=== PATIENT | male | born 1940 | race Caucasian/White ===

== ENCOUNTER → 2016-08-29 | Outpatient (REF) ==
[~2016-08-29] MED LIST: ASPIR-LOW81 MG PO; HERBS; LEVAQUIN 5500 MG/TA1 PO; NORCO 325 MG-7.1 TAB PO
[2016-08-29 15:44] LABS: PSA-TOTAL 2.33 ng/mL (0-4)
[2016-08-29 16:57] LABS: THYROID STIMULATING HORMONE 3.18 uIU/mL (0.465-4.680)
== END ==
LOC: ZLAB.WCH 14:57
PROVIDERS: Internal Medicine
DX: Z01.89 Encounter for other specified special examinations (principal)
CPT/HCPCS: G0103

== ENCOUNTER → 2017-04-07 | Outpatient (REF) | LOC: COL.CARD 14:51 | DX: Z02.89 Encounter for other administrative examinations (principal) ==

== ENCOUNTER → 2017-04-25 | Outpatient (REF) | LOC: ZLAB.WCH 18:13 | DX: Z01.89 Encounter for other specified special examinations (principal) ==

== ENCOUNTER → 2017-11-13 | Outpatient (REF) | LOC: ZLAB.WCH 15:57 | DX: Z01.89 Encounter for other specified special examinations (principal) ==

== ENCOUNTER → 2017-11-28 | Outpatient (REF) | LOC: COL.CARD 10:09 | DX: Z01.89 Encounter for other specified special examinations (principal) ==

== ENCOUNTER → 2018-01-11 | Outpatient (REF) | LOC: ZLAB.WCH 19:29 | DX: Z01.89 Encounter for other specified special examinations (principal) | CPT/HCPCS: G0103 ==

== ENCOUNTER → 2018-03-15 | Outpatient (REF) | LOC: ZLAB.WCH 16:16 | DX: Z01.89 Encounter for other specified special examinations (principal) ==

== ENCOUNTER → 2018-05-28 | Outpatient (REF) ==
[2018-05-28 18:28] LABS: C-REACTIVE PROTEIN < 0.5 mg/dL (0.0-0.9)
== END ==
LOC: ZLAB.WCH 18:11
PROVIDERS: Internal Medicine
DX: Z01.89 Encounter for other specified special examinations (principal)

== ENCOUNTER 2020-08-04 13:52 | Outpatient (CLI) | payer MEDICARE, BC ==
[2004-10-08 14:27] VITALS: BP 172/81
[~2020-08-04] VITALS: Ht 167.6 cm; Wt 90.9 kg
[2020-08-04 14:55] VITALS: BP 139/62; PULSE 62; TEMP 99.4
[2020-08-04 15:00] VITALS: BP 137/57; PULSE 60
[2020-08-04] MEDS ORDERED: COZAAR100 MG PO (15:17)
[2020-08-04] MEDS ORDERED: CARDIZEM CD 30300 MG PO (15:18)
[2020-08-04] MEDS ORDERED: HCTZ 25MG TAB25 MG PO (15:18)
[2020-08-04] MEDS ORDERED: COUMADIN 1MG1 MG/TAB PO (15:19)
[2020-08-04] MEDS ORDERED: COUMADIN 5MG5 MG/TAB PO (15:19)
[2020-08-04] MEDS ORDERED: B-121000 MCG PO (15:20)
[2020-08-04] MEDS ORDERED: TOPROL XL 25MG25 MG PO (15:20)
[2020-08-04] MEDS ORDERED: OMEGA-31 SGL PO (15:21)
[2020-08-04] MEDS ORDERED: SELENIUM2 PO (15:21)
[2020-08-04] MEDS ORDERED: LASIX 40MG TABL40 MG PO (15:21)
[2020-08-04 15:30] VITALS: BP 104/92; PULSE 60
[2020-08-04 16:00] VITALS: BP 131/90; PULSE 63
[2020-08-04 16:14] VITALS: BP 129/61; PULSE 61; TEMP 99.4
== END 2020-08-04 16:25 | disposition home or self-care (01) ==
LOC: EUO 13:52
DX: Z23 Encounter for immunization (principal); U07.1 COVID-19

== ENCOUNTER → 2023-11-22 | Outpatient (CLI) | payer MEDICARE, BC ==
[~2023-11-22] MED LIST changes: +B-121000 MCG PO; +CARDIZEM CD 30300 MG PO; +COUMADIN 1MG1 MG/TAB PO; +COUMADIN 5MG5 MG/TAB PO; +COZAAR100 MG PO; +HCTZ 25MG TAB25 MG PO; +LASIX 40MG TABL40 MG PO; +OMEGA-31 SGL PO; +SELENIUM2 PO; +TOPROL XL 25MG25 MG PO
== END ==
LOC: ZCOL.LAB 16:24
DX: H92.12 Otorrhea, left ear (principal)